=== PATIENT | female | born 1990 | race Caucasian/White ===

== ENCOUNTER 2023-02-21 13:03 | Emergency (ER) | payer OTHER ==
[~2023-02-21] VITALS: Ht 162.6 cm; Wt 55.3 kg
[~2023-02-21 13:03] MED LIST: SYNTHROID50 MCG PO
[2023-02-21] MEDS ORDERED: SYNTHROID112 MCG PO (13:41)
== END 2023-02-21 15:21 | disposition home or self-care (01) ==
LOC: ER 13:03
DX: R53.81 Other malaise (principal); J06.9 Acute upper respiratory infection, unspecified; Z20.822 Contact with and (suspected) exposure to COVID-19

== ENCOUNTER 2024-11-13 14:00 | Inpatient (IN) | payer OTHER ==
[~2024-11-13] VITALS: Ht 162.6 cm; Wt 3.2 kg
[~2024-11-13 14:00] MED LIST changes: +SYNTHROID112 MCG PO
[2024-11-22 03:07] VITALS: BP 117/83
[2024-11-22] MEDS ORDERED: MORPHINE SULFATE 4 MG/ML CARTRIDGE IV ONE (03:45)
[2024-11-22] MEDS ORDERED: RINGERS SOLUTION,LACTATED 1,000 ML IV SCH ×2 (03:45→07:15)
[2024-11-22] MEDS ORDERED: PRENATAL TABLE1 EAC4 PO (04:11)
[2024-11-22] MEDS ORDERED: SYNTHROID125 MCG PO (04:12)
[2024-11-22 04:44] LABS: BASO % 0.4 % (0.1-1.2); EOS # 0.11 (0.04-0.54); HEMATOCRIT 32.7 % (34.1-44.9); HEMOGLOBIN 11.6 g/dL (11.2-15.7); LYMPH % 19.1 % (19.3-53.1); MEAN CORPUSCULAR HEMOGLOBIN 32.4 pg (25.6-32.2); MONO # 0.93 (0.24-0.82); MONO % 8.1 % (4.7-12.5); NEUT # 8.15 (1.56-6.13); NEUT % 70.8 % (34.0-71.1); PLATELET COUNT 244 K/uL (163-369); RED BLOOD COUNT 3.58 M/uL (3.93-5.22); RED CELL DISTRIBUTION WIDTH 12.2 % (11.6-14.4)
[2024-11-22 04:53] LABS: INR 0.94; PARTIAL THROMBOPLASTIN TIME 29.5 SECONDS (22.0-34.0); PROTHROMBIN TIME 10.3 SECONDS (9.0-11.5)
[2024-11-22 04:54] LABS: PH,URINE 7.5 (5.0-8.0); URINE APPEARANCE Clear; URINE BILIRRUBIN Negative (NEGATIVE); URINE BLOOD Moderate; URINE COLOR Yellow; URINE GLUCOSE Negative (NEGATIVE); URINE KETONE Negative (NEGATIVE); URINE LEUKOCYTE Negative; URINE NITRATE Negative; URINE PROTEIN Negative (NEGATIVE); URINE UROBILINOGEN 0.2 E.U./dl
[2024-11-22 04:55] LABS: URINE BACTERIA 1092.7 uL (0.0-1933); URINE EPITHELIAL CELLS 27.8 uL (0.0-38.8); URINE RBC 2.3 uL (0.0-20.8); URINE WBC 9.6 uL (0.0-23.2)
[2024-11-22 04:58] LABS: ALBUMIN 2.8 gm/dL (3.4-5.0); BILIRUBIN TOTAL 0.29 mg/dL (0.3-1.2); CALCIUM 8.9 mg/dL (8.5-10.1); CREATININE SERUM 0.61 mg/dL (0.55-1.02); GFR 111.61; GLOBULINA 3.5 G/DL (2.4-3.5); POTASSIUM 4.04 mEq/L (3.5-5.1); TOTAL PROTEIN 6.3 gm/dL (6.4-8.2)
[2024-11-22 05:07] LABS: URINE CAST 0.44 uL (0.0-1.40)
[2024-11-22] MEDS ORDERED: OXYTOCIN 20 UNITS/500ML RL PIGGYBAG IV ONE (05:45)
[2024-11-22] MEDS ORDERED: OXYTOCIN 500 ML IV ONE (06:15)
[2024-11-22] MEDS ORDERED: OXYTOCIN 10 UNITS/ML VIAL ONE (06:57)
[2024-11-22] MEDS ORDERED: ERYTHROMYCIN BASE OPHT 1GM EACH TUBE OP ONE (06:57)
[2024-11-22] MEDS ORDERED: CEFAZOLIN SODIUM 1,000 MG VIAL IV SCH (07:00)
[2024-11-22] MEDS ORDERED: CITRIC ACID/SODIUM CITRATE 30 ML BLIST.PACK PO SCH (07:00)
[2024-11-22] MEDS ORDERED: KETOROLAC TROMETHAMINE 30 MG VIAL IV SCH (07:03)
[2024-11-22] MEDS ORDERED: OXYTOCIN 1,000 ML IV ONE (07:15)
[2024-11-22] MEDS ORDERED: MORPHINE SULFATE 4 MG/ML CARTRIDGE IV PRN (07:15)
[2024-11-22 07:17] VITALS: BP 157/115
[2024-11-22] MEDS ORDERED: GABAPENTIN 300 MG CAPSULE PO SCH (09:00)
[2024-11-22] MEDS ORDERED: SIMETHICONE 125 MG CAPSULE PO SCH (09:00)
[2024-11-22] MEDS ORDERED: DOCUSATE SODIUM 100MG CAP PO SCH (09:00)
[2024-11-22] MEDS ORDERED: KETOROLAC TROMETHAMINE 30 MG VIAL ONE (10:53)
[2024-11-22 11:30] VITALS: BP 115/76
[2024-11-22] MEDS ORDERED: ACETAMINOPHEN 500 MG GEL..CAP PO SCH (12:00)
[2024-11-22] MEDS ORDERED: ONDANSETRON HCL 2 MG/ML VIAL IV SCH (12:00)
[2024-11-22 15:57] VITALS: BP 116/74
[2024-11-22 20:00] VITALS: BP 116/69
[2024-11-23 00:28] VITALS: BP 111/76
[2024-11-23 07:15] LABS: BASO % 0.4 % (0.1-1.2); EOS # 0.14 (0.04-0.54); EOS % 0.8 % (0.7-7.0); LYMPH # 2.03 (1.18-3.74); LYMPH % 11.6 % (19.3-53.1); MEAN CORPUSCULAR HEMOGLOBIN 33.2 pg (25.6-32.2); MONO # 0.98 (0.24-0.82); MONO % 5.6 % (4.7-12.5); NEUT # 14.24 (1.56-6.13); PLATELET COUNT 189 K/uL (163-369); RED BLOOD COUNT 2.74 M/uL (3.93-5.22)
[2024-11-23 07:20] LABS: HEMATOCRIT 26.1 % (34.1-44.9); HEMOGLOBIN 9.1 g/dL (11.2-15.7)
[2024-11-23 08:00] VITALS: BP 129/80
[2024-11-23] MEDS ORDERED: KETOROLAC TROMETHAMINE 10 MG TABLET PO SCH (08:00)
[2024-11-23] MEDS ORDERED: OxyCODONE HCL 5 MG TABLET (ROXICODONE) PO PRN (08:00)
[2024-11-23 16:14] VITALS: BP 117/76
[2024-11-23 21:18] VITALS: BP 113/78
[2024-11-24 00:12] VITALS: BP 119/74
[2024-11-24 08:53] VITALS: BP 111/74
== END 2024-11-24 10:10 | disposition home or self-care (01) | DRG 788 ==
LOC: OB/GYN 11-22 03:41 → LDR 11-22 03:41 → OB/GYN 11-22 08:44 → SURH 11-25 14:00
PROVIDERS: Obstetrics & Gynecology; ADMIT Obstetrics & Gynecology Gynecology; ATTEND Obstetrics & Gynecology Gynecology
PROC: 4A1HXCZ Monitoring of Products of Conception, Cardiac Rate, External Approach (ICD-10-PCS; 2024-11-22)
PROC: 10D00Z1 Extraction of Products of Conception, Low, Open Approach (ICD-10-PCS; principal; 2024-11-22 07:00)
DX: O82 Encounter for cesarean delivery without indication (principal); O62.1 Secondary uterine inertia; Z3A.39 39 weeks gestation of pregnancy; Z37.0 Single live birth

== ENCOUNTER 2024-11-19 11:06 | Outpatient (CLI) | payer OTHER | END 2024-11-19 12:01 | disposition home or self-care (01) | LOC: NST 11:06 | PROVIDERS: ATTEND Obstetrics & Gynecology Gynecology | DX: Z34.83 Encounter for supervision of other normal pregnancy, third trimester (principal) ==